=== PATIENT | male | born 1995 | race Caucasian/White ===

== ENCOUNTER 2019-05-30 17:32 | Emergency (ER) | payer SELFPAY ==
[2019-05-30 17:33] VITALS: BP 152/102; PULSE 75; PULSE 79; RESP 18; RESP 28; TEMP 36.2; O2SAT 97; BMI 28.4
[2019-05-30] MEDS: fentaNYL 100 MCG/2 ML Ampul IV (17:40)
[2019-05-30] MEDS: fentaNYL 100 MCG/2 ML Ampul 50 MCG IV ×3 (17:51→18:30)
--- NOTE | 2019-05-30 17:53 | ED.RN ---
PT REPORTED UNABLE TO WIGGLE TOES ON BILAT FEET. PT UNABLE TO PERFORM PEDAL PUSHES. PT ON BACKBOARD W/C-COLLAR.
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
[2019-05-30 17:57] VITALS: BP 129/92; PULSE 71; RESP 18; O2SAT 100
[2019-05-30 18:04] VITALS: BP 149/96; PULSE 80; RESP 18; O2SAT 100
--- NOTE | 2019-05-30 18:08 | NURSING ---
CALLED [facility] 174 20 MIN ETA
--- NOTE | 2019-05-30 18:08 | NURSING ---
1800 [facility] CALLED, SOMETHING WRONG WITH [facility]. THEY ARE SENDING [facility]
--- NOTE | 2019-05-30 18:09 | NURSING ---
1806 ETA IS 23 MIN FOR CLARISSE
[2019-05-30 18:13] VITALS: BP 149/93; PULSE 66; RESP 18; O2SAT 100
--- NOTE | 2019-05-30 18:22 | ED.RN ---
PT MOANING LYING IN BED WITH MOTHER AT BEDSIDE. DR. GRACE INFORMED THAT PT REPORTED PAIN IS GETTING WORSE.
[2019-05-30 18:32] VITALS: BP 148/77; PULSE 83; RESP 24; O2SAT 100
--- NOTE | 2019-05-30 18:40 | ED.RN ---
[facility] ARRIVED AND VERBAL REPORT GIVEN. PT MOANING AND [facility] NURSE MEDICATING PT W/KETAMINE AT THIS TIME.
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
== END 2019-05-30 18:46 | disposition short-term general hospital (02) ==
PROVIDERS: Emergency Provider Emergency Medicine
DX: S00.83XA Contusion of other part of head, initial encounter (principal); S39.92XA Unspecified injury of lower back, initial encounter; V89.2XXA Person injured in unspecified motor-vehicle accident, traffic, initial encounter; Y93.I9 Activity, other involving external motion; Y92.410 Unspecified street and highway as the place of occurrence of the external cause; Y99.8 Other external cause status
CPT/HCPCS: 71045; 96374; 96376; 99285; J7030

== ENCOUNTER 2019-06-06 12:25 | Inpatient (IN) | payer SELFPAY, OTHER ==
[2019-06-06 12:55] VITALS: BP 115/77; PULSE 103; RESP 20; TEMP 36.9; O2SAT 99; BMI 26.9
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
[2019-06-06] MEDS: oxyCODONE 5 MG Tablet PO ×3 (13:46→21:51)
[2019-06-06 14:44] VITALS: O2SAT 97
--- NOTE | 2019-06-06 14:57 | REHABEVAL_ITS ---
Admission Information Status Changes from Prescreening?: No changes Identified Actual Problem List:: Pain, ALteration in Cmfrt, Mobility Impaired, Self Care Deficit Potential Problem List:: DVT, Bleeding, Infection, UTI, Aspiration, Falls, Skin Integrity, Depression Risk of Complications DVT: LMWH, TRIPP Hose, Sequential Compression Device Bleeding: Monitor Lab Values, Nursing to Teach Precautions for anti-coagulation therapy., Wound, if applicable, to be assessed every shift., Stroke patients assessed for lethargy or change in status. Infection: Clinical Staff to Monitor for S/S of infection:, S/S of infection include fever, redness, warmth, etc. Urinary Tract Infection: Monitor for frequency, burning, discomfort, or incontinence., Nursing will obtain urine sample for urinalysis and C&S when ordered. Aspiration: Clinical staff will monitor for coughing, drooling, congestion., Speech will evaluate swallowing and dsyphasia., Nursing will monitor patient swallowing during meals. Falls: Patient will be evaluated for Fall Precautions, Patient will be placed on Fall Precautions as indicated per protocol. Skin Breakdown: Nursing will assess skin daily using assessment tool., Nursing will place on Skin Breakdown Precautions as indicated. Pain: Clinical staff will assess patient's pain level per protocol., Medications will be given, if needed, and the pain level reassessed., Other methods: Massage, distraction, decrease stimulus, etc. used PRN. Plan of Care Patient requires physician specializing in physical medicine and rehab oversight to provide close medical supervision of rehab issues including: Pain Management, Sleep Problems, Bowel and Bladder, Medical and co-morbidity Management, DVT prophylaxis, Rehabilitation Leadership, Coordination of treatment team Patient needs Physical Therapy: For a minimum of 1 hour, At least 5 out of 7 days Patient needs Physical Therapy to improve:: Mobility, Mobility, Mobility, Strengthening, Transfers, Stretching, ROM, Endurance, Stairs, Gait, Balance Patient needs Occupational Therapy: For a minimum of 1 hour, At least 5 out of 7 days Patient needs Occupational Therapy to improve ADL's incl.: Eating, Grooming, Bathing, Dressing, Toileting, Toilet transfers, Community Reintegration, Higher functioning activities, Household tasks, Adaptive Equipment, Splinting, Other activities as determined Patient requires speech therapy: For a minimum of 1 hour, At least 5 out of 7 days Patient requires speech therapy for: Swallowing, Cognition, Language Skills, Compensatory Strategies Patient requires 24/7 Rehabilitation Nursing for: Pain Issues, Identifying and preventing risk factors, Monitoring and reporting current medical conditions, Assisting with ambulation, transfer, and all ADL's, Teaching patients about disease process and medications, Family teaching, Providing safe environment, Bowel and Bladder Issues, Skin integrity, Medication Management Patient needs Special Education Curriculum Specialist/ Case Management for: Discharge Planning, Arranging Home Equipment or Services, Family Interventions Patient needs Dietary and Nutrition Services for: Adequate Nutrition, Nutritional Supplements, Nutritional Education Goals Patient will remain: free from falls, or injury at time of discharge. Patient will perform bed mobility at: MOD I level of assist. Patient will complete transfers from bed to chair at: MOD I level of assist. Patient will ambulate: 100 feet, with MOD I assist, with LRD Patient will complete upper body dressing at: MOD I level of assist. Patient will complete lower body dressing at: MOD I level of assist. Patient will complete toileting at: MOD I level of assist. Patient will perform bathing at: MOD I level of assist. Patient will complete grooming at: MOD I level of assist. Patient will complete home management skills at: MOD I level of assist. Patient will achieve: 12 stairs, at MOD I assist Patient will have pain level of: of 3 or less Patient's skin will: remain intact, free from infection. Patient will receive: adequate nutrition. Discharge Planning Pt Prognosis for Sig. Practical Improv. w/in Reasonable Time: Good Estimated Length of stay (days): 16 Anticipated D/C Destination: [facility] Facility Was Preadmission Assessment Accurate?: Yes
[2019-06-06 15:30] VITALS: BMI 27.0
[2019-06-06] MEDS: Acetaminophen 500 MG Tablet 1000 MG PO ×2 (15:39→21:02)
--- NOTE | 2019-06-06 16:18 | NURSING ---
unable to void, bladder scan for 898. Misti MAGDALENO aware. new order to insert Beard catheter. 18 polish inserted with 800 out put. pt tolerated well. Dr arvizu consulted
[2019-06-06] MEDS: cycloBENZAPRine HCl 10 MG Tablet PO (17:03)
[2019-06-06] MEDS: Gabapentin 300 MG Capsule PO (18:42)
[2019-06-06] MEDS: Tamsulosin HCl 0.4 MG Capsule PO (18:42)
[2019-06-06] MEDS: LORazepam 0.5 MG Tablet PO (21:02)
[2019-06-06] MEDS: Senna/Docusate Sodium 1 Tablet 2 TABLET PO (21:03)
[2019-06-06] MEDS: MELATONIN 3 MG TABLET 6 MG PO (21:03)
[2019-06-06 21:09] VITALS: BP 123/71; PULSE 86; RESP 20; TEMP 36.8; O2SAT 97
[2019-06-07] MEDS: oxyCODONE 5 MG Tablet PO ×5 (02:50→19:47)
[2019-06-07] MEDS: Acetaminophen 500 MG Tablet 1000 MG PO ×3 (05:41→21:09)
[2019-06-07] MEDS: Enoxaparin 40 MG/0.4 ML Syringe SC (05:41)
[2019-06-07 06:16] LABS: Anion Gap 8 (5-15); BUN 18 mg/dL (7-18); BUN/Creat Ratio 28.1 RATIO (10-20); Calcium,Total 9.1 mg/dL (8.5-10.1); Chloride 102 mmol/L (98-107); Creatinine, Serum 0.64 mg/dL (0.70-1.30); EST Glomerular Filtration Rate 162 mL/min (>60); Est Glom Filt Rate - Afr Amer 196 mL/min (>60); Estimated Creatinine Clearance 160.61 ml/min; Glucose 93 mg/dL (74-106); Potassium 4.1 mmol/L (3.5-5.1); Sodium Level 137 mmol/L (136-145)
[2019-06-07 06:28] LABS: Absolute Lymphocyte Count 1.84 X10^3/uL (0.83-4.51); Absolute Neutrophil Count 5.9 X10^3/uL (2.0-7.7); Basophil# 0.03 X10^3/uL; Basophil% 0.3 % (0-1); Eosinophil# 0.32 X10^3/uL; Eosinophils% 3.6 % (0-5); Hemoglobin 10.9 g/dL (13.0-16.5); Lymphocyte # 1.84 X10^3/ul (4.0); Lymphocyte % 20.4 % (19-41); Mean Corp Hgb Conc 34.1 g/dL (32-36); Mean Corpuscular Volume 88.2 fL (80-94); Mean Platelet Vol. 8.4 fl (6.2-12.0); Monocyte# 0.85 X10^3/uL; Monocyte% 9.4 % (0-10); NRBC Flagged by Analyzer 0 % (0-5); Neutrophil # 5.88 X10^3/uL (2.7-7.7); Neutrophil % 65.4 % (47-70); Platelet Count 326 K/mm3 (150-450); RBC Distribution Width CV 13.2 % (11.6-14.6); RBC Distribution Width SD 40.6 fl (35.1-43.9); Red Blood Count 3.63 M/mm3 (4.6-6.2)
[2019-06-07 06:57] VITALS: O2SAT 96
[2019-06-07 07:23] VITALS: BP 129/70; PULSE 76; RESP 14; TEMP 36.7; O2SAT 97
[2019-06-07] MEDS: Lidocaine 5% Patch 1 PATCH TOPICAL (09:11)
[2019-06-07] MEDS: Senna/Docusate Sodium 1 Tablet 2 TABLET PO ×2 (09:12→21:09)
[2019-06-07] MEDS: Gabapentin 300 MG Capsule PO ×3 (09:12→17:19)
[2019-06-07] MEDS: Famotidine 20 MG Tablet PO (09:12)
[2019-06-07] MEDS: fentaNYL 25 MCG Patch TRANSDERM. (10:51)
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
[2019-06-07] MEDS: Tamsulosin HCl 0.4 MG Capsule PO (17:19)
[2019-06-07] MEDS: cycloBENZAPRine HCl 10 MG Tablet PO ×2 (17:21→20:38)
[2019-06-07 20:30] VITALS: BP 128/74; PULSE 91; RESP 16; TEMP 37.3; O2SAT 96
[2019-06-07] MEDS: MELATONIN 3 MG TABLET 6 MG PO (21:09)
[2019-06-07] MEDS: LORazepam 0.5 MG Tablet PO (22:07)
[2019-06-08] MEDS: oxyCODONE 5 MG Tablet PO ×6 (00:43→23:11)
[2019-06-08] MEDS: cycloBENZAPRine HCl 10 MG Tablet PO ×2 (04:05→14:54)
[2019-06-08] MEDS: Enoxaparin 40 MG/0.4 ML Syringe SC (05:00)
[2019-06-08] MEDS: Magnesium Hydroxide 30 ML UDC PO (05:00)
[2019-06-08] MEDS: Acetaminophen 500 MG Tablet 1000 MG PO ×3 (05:00→21:22)
[2019-06-08] MEDS: Gabapentin 300 MG Capsule PO ×3 (08:02→17:38)
[2019-06-08] MEDS: Famotidine 20 MG Tablet PO (08:02)
[2019-06-08] MEDS: Lidocaine 5% Patch 1 PATCH TOPICAL (08:02)
[2019-06-08] MEDS: Senna/Docusate Sodium 1 Tablet 2 TABLET PO ×2 (08:02→21:22)
[2019-06-08 08:27] VITALS: BP 140/76; PULSE 84; RESP 16; TEMP 37; O2SAT 96
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
[2019-06-08 14:05] VITALS: O2SAT 98
[2019-06-08] MEDS: Tamsulosin HCl 0.4 MG Capsule PO (17:38)
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
[2019-06-08] MEDS: fentaNYL 25 MCG Patch TRANSDERM. (21:21)
[2019-06-08] MEDS: MELATONIN 3 MG TABLET 6 MG PO (21:22)
[2019-06-08 22:00] VITALS: BP 126/72; PULSE 82; RESP 16; TEMP 36.9; O2SAT 95
[2019-06-09] MEDS: Baclofen 10 MG Tablet PO ×2 (02:32→13:13)
[2019-06-09] MEDS: Acetaminophen 500 MG Tablet 1000 MG PO ×3 (05:10→22:41)
[2019-06-09] MEDS: oxyCODONE 5 MG Tablet PO (05:10)
[2019-06-09] MEDS: Enoxaparin 40 MG/0.4 ML Syringe SC (05:10)
[2019-06-09 05:57] VITALS: O2SAT 97
[2019-06-09] MEDS: Bisacodyl 10 MG Suppository RECTAL (06:09)
[2019-06-09] MEDS: Ibuprofen 600 MG Tablet PO ×2 (06:09→17:20)
[2019-06-09 08:00] VITALS: BP 134/69; PULSE 88; RESP 16; TEMP 37.2; O2SAT 97
[2019-06-09] MEDS: Gabapentin 300 MG Capsule PO ×3 (08:17→17:20)
[2019-06-09] MEDS: Famotidine 20 MG Tablet PO (08:17)
[2019-06-09] MEDS: Senna/Docusate Sodium 1 Tablet 2 TABLET PO (08:17)
[2019-06-09] MEDS: Lidocaine 5% Patch 3 PATCH TOPICAL (09:22)
[2019-06-09] MEDS: Tamsulosin HCl 0.4 MG Capsule PO (17:21)
--- NOTE | 2019-06-09 17:47 | NURSING ---
Reviewed and agree with [employer]'s Fims and charting
[2019-06-09 19:11] VITALS: BP 132/74; PULSE 98; RESP 18; TEMP 37; O2SAT 98
[2019-06-09 20:29] VITALS: RESP 18; O2SAT 94
[2019-06-09] MEDS: MELATONIN 3 MG TABLET 6 MG PO (22:42)
[2019-06-10] MEDS: oxyCODONE 5 MG Tablet PO ×2 (02:17→20:51)
[2019-06-10] MEDS: Acetaminophen 500 MG Tablet 1000 MG PO ×3 (05:11→20:58)
[2019-06-10] MEDS: Enoxaparin 40 MG/0.4 ML Syringe SC (05:12)
[2019-06-10 07:25] VITALS: BP 124/61; PULSE 83; RESP 16; TEMP 36.4; O2SAT 96
[2019-06-10] MEDS: Ibuprofen 600 MG Tablet PO (08:05)
[2019-06-10] MEDS: Gabapentin 300 MG Capsule PO ×3 (08:06→17:30)
[2019-06-10] MEDS: Senna/Docusate Sodium 1 Tablet 2 TABLET PO ×2 (08:06→20:57)
[2019-06-10] MEDS: Famotidine 20 MG Tablet PO (08:06)
[2019-06-10] MEDS: Lidocaine 5% Patch 3 PATCH TOPICAL (10:16)
--- NOTE | 2019-06-10 11:00 | NURSING ---
sat edge of bed for approx 20 minutes with 2 assist. pain tolerable.
--- NOTE | 2019-06-10 16:15 | NURSING ---
assist x2 to sit edge of bed for approx 25 minutes. tolerated well.
--- NOTE | 2019-06-10 16:17 | NURSING ---
duragesic patch 25mcg and 12mcg maintained to left arm.
--- NOTE | 2019-06-10 17:15 | NURSING ---
Reviewed and agree with [employer]'s FIMS and charting
[2019-06-10] MEDS: Tamsulosin HCl 0.4 MG Capsule PO (17:30)
[2019-06-10 19:18] VITALS: BP 133/58; PULSE 83; RESP 16; TEMP 36.8; O2SAT 95
[2019-06-10] MEDS: LORazepam 0.5 MG Tablet PO (20:52)
[2019-06-10] MEDS: MELATONIN 3 MG TABLET 6 MG PO (20:58)
[2019-06-10 22:00] VITALS: PULSE 83; RESP 16; O2SAT 95
[2019-06-11] MEDS: Acetaminophen 500 MG Tablet 1000 MG PO ×3 (06:00→21:44)
[2019-06-11] MEDS: Enoxaparin 40 MG/0.4 ML Syringe SC (06:00)
[2019-06-11 07:10] VITALS: BP 124/77; PULSE 78; RESP 16; TEMP 36.6; O2SAT 96
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
[2019-06-11] MEDS: Gabapentin 300 MG Capsule PO ×3 (09:06→17:44)
[2019-06-11] MEDS: Ibuprofen 600 MG Tablet PO (09:06)
[2019-06-11] MEDS: Senna/Docusate Sodium 1 Tablet 2 TABLET PO ×2 (09:06→21:44)
[2019-06-11] MEDS: Famotidine 20 MG Tablet PO (09:06)
[2019-06-11] MEDS: oxyCODONE 5 MG Tablet PO (09:10)
[2019-06-11] MEDS: Lidocaine 5% Patch 3 PATCH TOPICAL (10:44)
[2019-06-11] MEDS: Tamsulosin HCl 0.4 MG Capsule PO (17:44)
[2019-06-11 18:48] VITALS: BP 142/67; PULSE 78; RESP 16; TEMP 37; O2SAT 98
[2019-06-11] MEDS: fentaNYL 25 MCG Patch TRANSDERM. (21:41)
[2019-06-11] MEDS: LORazepam 0.5 MG Tablet PO (21:41)
[2019-06-11] MEDS: MELATONIN 3 MG TABLET 6 MG PO (21:42)
[2019-06-11 22:00] VITALS: PULSE 78; RESP 16; O2SAT 98
[2019-06-12] MEDS: Acetaminophen 500 MG Tablet 1000 MG PO ×3 (05:38→21:02)
[2019-06-12] MEDS: Enoxaparin 40 MG/0.4 ML Syringe SC (05:39)
[2019-06-12 07:21] VITALS: BP 117/73; PULSE 89; RESP 16; TEMP 36.8; O2SAT 94
[2019-06-12] MEDS: Ibuprofen 600 MG Tablet PO (07:39)
[2019-06-12] MEDS: Gabapentin 300 MG Capsule PO ×3 (07:39→17:41)
[2019-06-12] MEDS: Famotidine 20 MG Tablet PO (07:39)
[2019-06-12] MEDS: Lidocaine 5% Patch 3 PATCH TOPICAL (07:40)
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
--- NOTE | 2019-06-12 16:00 | NURSING ---
Refused Ibuprofen after therapy session like pain management recommended.
[2019-06-12] MEDS: Tamsulosin HCl 0.4 MG Capsule PO (17:41)
[2019-06-12 19:47] VITALS: BP 122/69; PULSE 81; RESP 16; TEMP 36.9; O2SAT 96
[2019-06-12] MEDS: MELATONIN 3 MG TABLET 6 MG PO (21:03)
[2019-06-12] MEDS: LORazepam 0.5 MG Tablet PO (21:03)
[2019-06-12 22:00] VITALS: PULSE 81; RESP 16; O2SAT 96
[2019-06-13 05:48] LABS: Hematocrit 34.1 % (40-54); Hemoglobin 11.3 g/dL (13.0-16.5); Mean Corp Hgb Conc 33.1 g/dL (32-36); Mean Corpuscular Hgb 29.4 pg (27.0-32.0); Mean Corpuscular Volume 88.8 fL (80-94); Mean Platelet Vol. 7.9 fl (6.2-12.0); Platelet Count 380 K/mm3 (150-450); RBC Distribution Width CV 12.3 % (11.6-14.6); RBC Distribution Width SD 39.2 fl (35.1-43.9); Red Blood Count 3.84 M/mm3 (4.6-6.2); White Blood Count 6.8 K/mm3 (4.4-11.0)
[2019-06-13] MEDS: Enoxaparin 40 MG/0.4 ML Syringe SC (05:57)
[2019-06-13] MEDS: Acetaminophen 500 MG Tablet 1000 MG PO ×3 (05:57→21:59)
[2019-06-13 06:09] LABS: Anion Gap 4 (5-15); BUN 19 mg/dL (7-18); BUN/Creat Ratio 28.5 RATIO (10-20); Calcium,Total 9.4 mg/dL (8.5-10.1); Chloride 101 mmol/L (98-107); Creatinine, Serum 0.67 mg/dL (0.70-1.30); EST Glomerular Filtration Rate 155 mL/min (>60); Est Glom Filt Rate - Afr Amer 188 mL/min (>60); Estimated Creatinine Clearance 153.42 ml/min; Glucose 91 mg/dL (74-106); Potassium 4.4 mmol/L (3.5-5.1); Sodium Level 136 mmol/L (136-145)
[2019-06-13 08:05] VITALS: BP 125/71; PULSE 73; RESP 18; TEMP 36.9; O2SAT 97
[2019-06-13] MEDS: Lidocaine 5% Patch 3 PATCH TOPICAL (08:32)
[2019-06-13] MEDS: Famotidine 20 MG Tablet PO (08:32)
[2019-06-13] MEDS: Ibuprofen 600 MG Tablet PO (08:32)
[2019-06-13] MEDS: Gabapentin 300 MG Capsule PO ×3 (08:32→17:09)
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
--- NOTE | 2019-06-13 15:27 | NURSING ---
pt refusing pain mgmt MD suggestion for ibuprofen following therapy session. Pt did take ibuprofen prior to therapy.
[2019-06-13] MEDS: Tamsulosin HCl 0.4 MG Capsule PO (17:09)
--- NOTE | 2019-06-13 18:32 | NURSING ---
reviewed and agree with [employer]CHNICIAN charting.
[2019-06-13 21:02] VITALS: BP 133/76; PULSE 86; RESP 18; TEMP 36.6; O2SAT 97
[2019-06-13] MEDS: MELATONIN 3 MG TABLET 6 MG PO (21:59)
[2019-06-14] MEDS: Acetaminophen 500 MG Tablet 1000 MG PO ×3 (06:21→20:34)
[2019-06-14] MEDS: Enoxaparin 40 MG/0.4 ML Syringe SC (06:22)
[2019-06-14 07:39] VITALS: BP 121/76; PULSE 73; RESP 18; TEMP 36.6; O2SAT 97
[2019-06-14] MEDS: Ibuprofen 600 MG Tablet PO (08:11)
[2019-06-14] MEDS: Lidocaine 5% Patch 3 PATCH TOPICAL (08:12)
[2019-06-14] MEDS: Famotidine 20 MG Tablet PO (08:12)
[2019-06-14] MEDS: Gabapentin 300 MG Capsule PO ×3 (08:12→17:28)
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
[2019-06-14] MEDS: Tamsulosin HCl 0.4 MG Capsule PO (17:28)
[2019-06-14 18:36] VITALS: BP 120/76; PULSE 96; RESP 16; TEMP 37; O2SAT 97
[2019-06-14] MEDS: Senna/Docusate Sodium 1 Tablet 2 TABLET PO (20:33)
[2019-06-14] MEDS: fentaNYL 25 MCG Patch TRANSDERM. (20:33)
[2019-06-14] MEDS: MELATONIN 3 MG TABLET 6 MG PO (20:34)
[2019-06-15] MEDS: Enoxaparin 40 MG/0.4 ML Syringe SC (05:07)
[2019-06-15] MEDS: Acetaminophen 500 MG Tablet 1000 MG PO ×3 (05:07→21:38)
[2019-06-15 08:36] VITALS: BP 126/71; PULSE 70; RESP 18; TEMP 36.7; O2SAT 95
[2019-06-15] MEDS: Lidocaine 5% Patch 3 PATCH TOPICAL (08:59)
[2019-06-15] MEDS: Gabapentin 300 MG Capsule PO ×3 (08:59→16:46)
[2019-06-15] MEDS: Ibuprofen 600 MG Tablet PO (08:59)
[2019-06-15] MEDS: Famotidine 20 MG Tablet PO (08:59)
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
--- NOTE | 2019-06-15 14:01 | PCM.PN.HOSP ---
Patient Problems: Active and Suspected Problems Unspecified fracture of unspecified thoracic vertebra, sequela (Acute) Unspecified fracture of unspecified thoracic vertebra, initial encounter for closed fracture (Acute) Closed fracture of multiple thoracic vertebrae (Acute) Acute bilateral thoracic back pain (Acute) Low back pain (Acute) Myalgia, unspecified site (Acute) Myalgia, unspecified site (Acute) Other acute postprocedural pain (Acute) Traumatic injury of vertebral region of back (Acute) Subjective: Patient standing is having some increased movement in his lower extremities but still not able to wiggle his toes though he feels his muscles moving cannot be seen at this time. No constipation. Pain is well controlled. Vitals/I&O's: Vital Signs Temp Pulse Resp BP Pulse Ox 36.7 C 70 18 126/71 H 95 06/15/19 08:36 06/15/19 08:36 06/15/19 08:36 06/15/19 08:36 06/15/19 08:36 Oxygen Delivery Method Room Air Weight: 72.4 kg Body Mass Index (BMI) 26.9 Intake and Output for Last 24 Hours 06/13/19 06/14/19 06/15/19 23:59 23:59 23:59 Intake Total 4 / 4 460 / 460 Output Total 1150 / 1150 3075 / 3075 Balance -1146 / -1146 -2615 / -2615 General: Alert, No apparent distress, - - In wheelchair. Back brace in place HEENT: Atraumatic, Normocephalic Oral: Moist Mucosa, No Gingival or Mucosal Lesions/ Ulcerations Neck: No Nodes, Thyroid Normal Size and Texture Lungs: Clear to auscultation, Normal air movement, No rhonchi, No wheeze, No rales Cardiovascular: Regular rate, Regular Rhythm, Normal S1, Normal S2, No murmurs Abdomen: Bowel Sounds Present, Soft, Non Tender, Non-Distended, No Hepato-splenomegaly Extremities: No edema, No Calf Tenderness Skin: No rashes, No breakdown Neurological: - - Unable to wiggle his toes bilaterally Psych/Mental Status: Normal Affect, Appropriate Current Medications Acetaminophen (Tylenol) 1,000 mg PO TID JERAD Last Admin: 06/15/19 13:08 Dose: 1,000 mg Documented by: Baclofen (Lioresal) 10 mg PO Q6H PRN PRN Reason: MUSCLE SPASM Last Admin: 06/09/19 13:13 Dose: 10 mg Documented by: Bisacodyl (Dulcolax) 10 mg RECTAL .PRN X 1 PRN PRN Reason: Constipation Last Admin: 06/09/19 06:09 Dose: 10 mg Documented by: Enoxaparin Sodium (Lovenox) 40 mg SC DAILY@0600 [facility] Last Admin: 06/15/19 05:07 Dose: 40 mg Documented by: Famotidine (Pepcid) 20 mg PO DAILY [facility] Last Admin: 06/15/19 08:59 Dose: 20 mg Documented by: Fentanyl (Duragesic Patch) 25 mcg TRANSDERM. Q3D [facility] Last Admin: 06/14/19 20:33 Dose: 25 mcg Documented by: Fentanyl (Duragesic Patch) 12 mcg TRANSDERM. Q72H [facility] Last Admin: 06/14/19 20:33 Dose: 12 mcg Documented by: Gabapentin (Neurontin) 300 mg PO TIDCM [facility] Last Admin: 06/15/19 13:08 Dose: 300 mg Documented by: Ibuprofen (Motrin) 600 mg PO TID PRN PRN Reason: PAIN Last Admin: 06/15/19 08:59 Dose: 600 mg Documented by: Lidocaine (Lidoderm Patch) 3 patch TOPICAL DAILY [facility]; Protocol Last Admin: 06/15/19 08:59 Dose: 3 patch Documented by: Lorazepam (Ativan) 0.5 mg PO QHS PRN PRN PRN Reason: Insomnia Last Admin: 06/12/19 21:03 Dose: 0.5 mg Documented by: Magnesium Hydroxide (Milk Of Magnesia) 30 ml PO .PRN X 1 PRN PRN Reason: Constipation Last Admin: 06/08/19 05:00 Dose: 30 ml Documented by: Melatonin (Melatonin) 6 mg PO QHS [facility] Last Admin: 06/14/19 20:34 Dose: 6 mg Documented by: Oxycodone HCl (Oxyir) 5 - 10 mg PO Q4H PRN PRN Last Admin: 06/11/19 09:10 Dose: 10 mg Documented by: Senna/Docusate Sodium (Senokot-S, Connie-Colace) 2 tablet PO BID [facility] Last Admin: 06/15/19 10:43 Dose: Not Given Documented by: Tamsulosin HCl (Flomax) 0.4 mg PO DAILY@1730 [facility] Last Admin: 06/14/19 17:28 Dose: 0.4 mg Documented by: Medical Necessity - Tobacco Use Smoking Status: Light Smoker (<10/day) Tobacco Use: Cigarettes, Chew Assessment/Plan All Active Problems Unspecified fracture of unspecified thoracic vertebra, sequela (Acute) Unspecified fracture of unspecified thoracic vertebra, initial encounter for closed fracture (Acute) Closed fracture of multiple thoracic vertebrae (Acute) Acute bilateral thoracic back pain (Acute) Low back pain (Acute) Myalgia, unspecified site (Acute) Myalgia, unspecified site (Acute) Other acute postprocedural pain (Acute) Traumatic injury of vertebral region of back (Acute) 1. L1 lumbar fracture Status post laminectomy on May 31 Continue therapy services as prescribed by rehab. Follow-up with Dr. Hunt on June 21 Pain management following 2. Paraplegia Secondary to #1 Associated urinary retention with subsequent Beard catheter placed Seen by urology who did recommend intermittent self catheterizations when the patient is ready. 3. VTE prophylaxis: Moderate risk given his paraplegia. Continue with enoxaparin. Code Visit Inpatient E&M: 20074 Subs Hosp L2
[2019-06-15] MEDS: Tamsulosin HCl 0.4 MG Capsule PO (16:47)
[2019-06-15] MEDS: MELATONIN 3 MG TABLET 6 MG PO (21:38)
[2019-06-15] MEDS: Senna/Docusate Sodium 1 Tablet 2 TABLET PO (21:38)
[2019-06-15 22:00] VITALS: BP 126/69; PULSE 75; RESP 18; TEMP 36.8; O2SAT 96
--- NOTE | 2019-06-16 03:03 | NURSING ---
Reviewed and agree with LPNs fims and handoff
[2019-06-16] MEDS: Acetaminophen 500 MG Tablet 1000 MG PO ×3 (05:49→22:00)
[2019-06-16] MEDS: Enoxaparin 40 MG/0.4 ML Syringe SC (05:50)
[2019-06-16] MEDS: Lidocaine 5% Patch 3 PATCH TOPICAL (07:45)
[2019-06-16] MEDS: Gabapentin 300 MG Capsule PO ×3 (07:45→16:43)
[2019-06-16] MEDS: Famotidine 20 MG Tablet PO (07:46)
[2019-06-16] MEDS: Senna/Docusate Sodium 1 Tablet 2 TABLET PO ×2 (07:46→22:01)
[2019-06-16] MEDS: Ibuprofen 600 MG Tablet PO (07:49)
[2019-06-16 08:35] VITALS: BP 121/73; PULSE 61; RESP 16; TEMP 36.4; O2SAT 99
[2019-06-16] MEDS: Tamsulosin HCl 0.4 MG Capsule PO (16:43)
[2019-06-16 20:16] VITALS: BP 133/68; PULSE 81; RESP 16; TEMP 37
[2019-06-16] MEDS: MELATONIN 3 MG TABLET 6 MG PO (22:01)
--- NOTE | 2019-06-17 05:30 | NURSING ---
PT OFFERED STRONGER PAIN MEDICATION THIS AM FOR PAIN PT RATED 50 ON A 1-10 SCALE. PT IS LYING IN BED WITH EYES CLOSED AND COVERS PULLED UP OVER FACE. PT'S FRIEND AT BEDSIDE, MASSAGING PT'S FEET. PT DECLINES STRONGER PAIN MED AT THIS TIME.
[2019-06-17] MEDS: Enoxaparin 40 MG/0.4 ML Syringe SC (05:35)
[2019-06-17] MEDS: Acetaminophen 500 MG Tablet 1000 MG PO ×3 (05:35→20:56)
[2019-06-17] MEDS: Gabapentin 300 MG Capsule PO ×3 (08:25→17:01)
[2019-06-17] MEDS: Famotidine 20 MG Tablet PO (08:25)
[2019-06-17] MEDS: Ibuprofen 600 MG Tablet PO (08:25)
[2019-06-17] MEDS: Lidocaine 5% Patch 3 PATCH TOPICAL (08:26)
[2019-06-17 09:00] VITALS: BP 118/72; PULSE 65; RESP 16; TEMP 36.9; O2SAT 95
[2019-06-17] MEDS: Tamsulosin HCl 0.4 MG Capsule PO (17:01)
[2019-06-17 20:38] VITALS: BP 135/74; PULSE 82; RESP 16; TEMP 37.4; O2SAT 97
[2019-06-17] MEDS: fentaNYL 25 MCG Patch TRANSDERM. (20:42)
[2019-06-17] MEDS: MELATONIN 3 MG TABLET 6 MG PO (20:56)
[2019-06-17] MEDS: Senna/Docusate Sodium 1 Tablet 2 TABLET PO (20:56)
[2019-06-18] MEDS: Acetaminophen 500 MG Tablet 1000 MG PO (07:00)
[2019-06-18] MEDS: Enoxaparin 40 MG/0.4 ML Syringe SC (07:00)
[2019-06-18 07:04] VITALS: BP 115/63; PULSE 73; RESP 16; TEMP 36.7; O2SAT 96
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
[2019-06-18] MEDS: Lidocaine 5% Patch 3 PATCH TOPICAL (09:57)
[2019-06-18] MEDS: Gabapentin 300 MG Capsule PO ×3 (09:58→17:21)
[2019-06-18] MEDS: Famotidine 20 MG Tablet PO (09:58)
[2019-06-18] MEDS: Senna/Docusate Sodium 1 Tablet 2 TABLET PO ×2 (09:58→22:08)
--- NOTE | 2019-06-18 10:34 | NURSING ---
Addendum entered by Bhargavi Spence 06/18/19 10:38: also requested that Dr Jose let us know if he would like to make any other medication changes. Original Note: Dr Jose made aware that Duragesic patch 7mcg was dc'd d/t pt c/o drowsiness and requesting changes to his pain medication.
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
--- NOTE | 2019-06-18 14:56 | CASEMGMT ---
Social Work IDT met with patient and family for Team Meeting. Discussed making progress in therapy. Pt is min to mod for transfers, working on slide board transfers with one person, trunk strength is improving and can stand for longer periods of time, ankle strength is still poor and cannot walk yet. Pt is w/c level at this time and max assist with lower body care. Pt inquiring about discharge plans and finances. Pt can discharge whenever he requests. Contacted [facility] Liaison for further financial assistance. She has met with pt and parents three times to educate and provide resources. Reiterated assistance with pt and can help with hospital bills and DME when ready to DC. Pt agreed to ReTeam next week to discuss progress. Will continue to follow. SHAYY ElmoreW
[2019-06-18] MEDS: Tamsulosin HCl 0.4 MG Capsule PO (17:22)
[2019-06-18 19:17] VITALS: BP 140/79; PULSE 85; RESP 16; TEMP 37.1; O2SAT 97
[2019-06-18 21:30] VITALS: PULSE 85; RESP 16; O2SAT 97
[2019-06-18] MEDS: MELATONIN 3 MG TABLET 6 MG PO (22:07)
[2019-06-19] MEDS: Enoxaparin 40 MG/0.4 ML Syringe SC (06:04)
--- NOTE | 2019-06-19 06:49 | NURSING ---
Reviewed and agree with LPNs fims and handoff
[2019-06-19 08:41] VITALS: BP 112/70; PULSE 72; RESP 16; TEMP 36.9; O2SAT 94
[2019-06-19] MEDS: Famotidine 20 MG Tablet PO (08:47)
[2019-06-19] MEDS: Gabapentin 300 MG Capsule PO ×3 (08:47→17:43)
[2019-06-19] MEDS: Senna/Docusate Sodium 1 Tablet 2 TABLET PO ×2 (08:48→21:44)
[2019-06-19] MEDS: Lidocaine 5% Patch 3 PATCH TOPICAL (08:48)
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
[2019-06-19] MEDS: Ibuprofen 600 MG Tablet PO ×2 (13:56→21:44)
[2019-06-19] MEDS: Tamsulosin HCl 0.4 MG Capsule PO (17:43)
[2019-06-19 21:00] VITALS: BP 120/72; PULSE 73; RESP 16; TEMP 36.9; O2SAT 95
[2019-06-19] MEDS: MELATONIN 3 MG TABLET 6 MG PO (21:44)
--- NOTE | 2019-06-20 03:51 | NURSING ---
Reviewed and agree with LPNs fims and handoff
[2019-06-20] MEDS: Acetaminophen 500 MG Tablet 1000 MG PO ×3 (06:01→22:49)
[2019-06-20] MEDS: Enoxaparin 40 MG/0.4 ML Syringe SC (06:02)
[2019-06-20] MEDS: Lidocaine Jelly 2% 20 ML Syringe (URO-JET) 20 APPLIC TOPICAL (06:20)
[2019-06-20 08:42] VITALS: BP 111/60; PULSE 66; RESP 16; TEMP 36.7; O2SAT 96
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
[2019-06-20] MEDS: Ibuprofen 600 MG Tablet PO (10:19)
[2019-06-20] MEDS: Lidocaine 5% Patch 3 PATCH TOPICAL (10:19)
[2019-06-20] MEDS: Gabapentin 300 MG Capsule PO ×3 (10:20→17:21)
[2019-06-20] MEDS: Senna/Docusate Sodium 1 Tablet 2 TABLET PO ×2 (10:20→22:48)
[2019-06-20] MEDS: Famotidine 20 MG Tablet PO (10:20)
[2019-06-20] MEDS: oxyCODONE 5 MG Tablet PO (13:36)
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
[2019-06-20] MEDS: Tamsulosin HCl 0.4 MG Capsule PO (17:21)
[2019-06-20 22:00] VITALS: BP 117/60; PULSE 63; RESP 17; TEMP 36.6; O2SAT 96
[2019-06-20] MEDS: fentaNYL 25 MCG Patch TRANSDERM. (22:47)
[2019-06-20] MEDS: MELATONIN 3 MG TABLET 6 MG PO (22:48)
[2019-06-20] MEDS: LORazepam 0.5 MG Tablet PO (22:51)
--- NOTE | 2019-06-20 23:25 | NURSING ---
upon taking off old 25 mcg duragesic patch and attempting to waste, this nurse and RN Fariha noticed that there was no duragesic from 06/17 noted in the accudose. this nurse called John Bauman from pharmacy, and was able to see that there was a 25 mcg patch removed from accudose and another patch wasted soon after. was unable to find a solution for wasting patch in the accudose. this nurse and RN Fariha wasted patch together in Rx destroyer. from pharmacy aware.
--- NOTE | 2019-06-20 23:29 | NURSING ---
This RN attempted to witness a waste of a 25mcg Duragesic. When VICTIMS ADVOCATE CLERK/SPECIALIST looked for appropriate Duragesic to waste, this med was not found in Accudose. The VICTIMS ADVOCATE CLERK/SPECIALIST called , from Pharmacy. recommended writing a Nursing Note about the matter and disposing of the patch in the Destroyer as he could not explain why the dose was not available to waste in the Accudose.
--- NOTE | 2019-06-20 23:40 | NURSING ---
Pt was inappropriate with staff this hs while assessment was being conducted. Staff informed pt that comments made towards staff were not appropriate and that respect should be shown towards staff. Pt remarked that he didn't have to. Staff are caring for this pt in tandem to avoid the RISK MANAGEMENT CONSULTANT becoming a target of inappropriate comments by the pt. Pt asked if I had to remove the Lidocaine patches from his back at midnight. This nurse told him I did have to remove the patches & the removal time is scheduled at this time. The Pt stated that I was a worthless nurse! twice.
--- NOTE | 2019-06-21 05:07 | NURSING ---
Reviewed and agree with trim and burr operator documentation and fims charting
[2019-06-21] MEDS: Acetaminophen 500 MG Tablet 1000 MG PO ×3 (06:27→21:36)
[2019-06-21] MEDS: Enoxaparin 40 MG/0.4 ML Syringe SC (06:28)
[2019-06-21] MEDS: Gabapentin 300 MG Capsule PO ×3 (07:48→16:25)
[2019-06-21] MEDS: Famotidine 20 MG Tablet PO (07:48)
[2019-06-21] MEDS: Senna/Docusate Sodium 1 Tablet 2 TABLET PO ×2 (07:48→21:37)
[2019-06-21] MEDS: Ibuprofen 600 MG Tablet PO (07:51)
[2019-06-21 08:12] VITALS: BP 112/61; PULSE 61; RESP 18; TEMP 36.8; O2SAT 95
[2019-06-21] MEDS: Lidocaine 5% Patch 3 PATCH TOPICAL (08:53)
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
[2019-06-21] MEDS: Tamsulosin HCl 0.4 MG Capsule PO (16:25)
[2019-06-21 19:57] VITALS: BP 116/59; PULSE 65; RESP 16; TEMP 36.8; O2SAT 97
[2019-06-21] MEDS: Baclofen 10 MG Tablet PO (20:06)
[2019-06-21] MEDS: Lidocaine Jelly 2% 20 ML Syringe (URO-JET) 20 APPLIC TOPICAL (21:36)
[2019-06-21] MEDS: MELATONIN 3 MG TABLET 6 MG PO (21:37)
[2019-06-22] MEDS: Acetaminophen 500 MG Tablet 1000 MG PO ×3 (07:01→21:40)
[2019-06-22] MEDS: Enoxaparin 40 MG/0.4 ML Syringe SC (07:02)
[2019-06-22] MEDS: Lidocaine 5% Patch 3 PATCH TOPICAL (09:05)
[2019-06-22] MEDS: Senna/Docusate Sodium 1 Tablet 2 TABLET PO ×2 (09:06→21:41)
[2019-06-22] MEDS: Gabapentin 300 MG Capsule PO ×3 (09:06→17:46)
[2019-06-22] MEDS: Ibuprofen 600 MG Tablet PO (09:06)
[2019-06-22] MEDS: Famotidine 20 MG Tablet PO (09:06)
[2019-06-22 09:34] VITALS: BP 110/61; PULSE 70; RESP 16; TEMP 36.6; O2SAT 97
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
[2019-06-22] MEDS: Tamsulosin HCl 0.4 MG Capsule PO (17:46)
[2019-06-22 19:28] VITALS: BP 115/65; PULSE 67; RESP 16; TEMP 36.8; O2SAT 97
[2019-06-22] MEDS: LORazepam 0.5 MG Tablet PO (21:40)
[2019-06-22] MEDS: MELATONIN 3 MG TABLET 6 MG PO (21:41)
[2019-06-22 22:00] VITALS: PULSE 67; RESP 16; O2SAT 97
[2019-06-23] MEDS: Acetaminophen 500 MG Tablet 1000 MG PO ×3 (06:44→21:03)
[2019-06-23] MEDS: Enoxaparin 40 MG/0.4 ML Syringe SC (06:44)
[2019-06-23 08:00] VITALS: BP 120/60; PULSE 65; RESP 16; TEMP 36.5; O2SAT 96
[2019-06-23] MEDS: Famotidine 20 MG Tablet PO (09:32)
[2019-06-23] MEDS: Gabapentin 300 MG Capsule PO ×3 (09:32→17:36)
[2019-06-23] MEDS: Lidocaine 5% Patch 3 PATCH TOPICAL (09:32)
[2019-06-23] MEDS: Senna/Docusate Sodium 1 Tablet 2 TABLET PO ×2 (09:34→21:03)
[2019-06-23] MEDS: Ibuprofen 600 MG Tablet PO (09:34)
[2019-06-23] MEDS: Tamsulosin HCl 0.4 MG Capsule PO (17:36)
--- NOTE | 2019-06-23 19:14 | NURSING ---
Refused toileting task to be assisted to BSC today.
[2019-06-23 19:35] VITALS: BP 124/80; PULSE 80; RESP 16; TEMP 36.7; O2SAT 97
[2019-06-23] MEDS: MELATONIN 3 MG TABLET 6 MG PO (21:02)
[2019-06-23] MEDS: fentaNYL 25 MCG Patch TRANSDERM. (21:02)
[2019-06-23] MEDS: LORazepam 0.5 MG Tablet PO (21:04)
[2019-06-23 22:00] VITALS: PULSE 80; RESP 16; O2SAT 97
--- NOTE | 2019-06-23 23:02 | PCA ---
Pt. offered shower on 06/23/19 at 2100. Pt. refused shower saying it would be too painful. Recommended to pt. he could shower with dayshift on 06/24/19 if pt. able to tolerate ambulating with staff. pt. agreed with suggestion.
--- NOTE | 2019-06-23 23:09 | NURSING ---
At 21:00, [employer] & RN approached pt regarding showering needs. Pt immediately declined the offer to shower. Pt stated that he feared it would be too painful to sit on the hard bench to shower. [employer] suggested that he reconsider showering Tuesday for dayshift since dayshift staff offered to ambulate pt for exercise as there is no official therapy sessions on Tuesday. Pt agreed to at least reconsider but stated he has sat at edge of bed but able to recline upon discomfort.
[2019-06-24] MEDS: Acetaminophen 500 MG Tablet 1000 MG PO ×3 (06:16→21:50)
[2019-06-24] MEDS: Enoxaparin 40 MG/0.4 ML Syringe SC (06:16)
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
[2019-06-24] MEDS: Gabapentin 300 MG Capsule PO ×3 (08:27→18:20)
[2019-06-24] MEDS: Famotidine 20 MG Tablet PO (08:27)
[2019-06-24] MEDS: Ibuprofen 600 MG Tablet PO (08:27)
[2019-06-24] MEDS: Senna/Docusate Sodium 1 Tablet 2 TABLET PO ×2 (08:27→21:51)
[2019-06-24] MEDS: Lidocaine 5% Patch 3 PATCH TOPICAL (08:28)
[2019-06-24 09:21] VITALS: BP 116/71; PULSE 75; RESP 18; TEMP 36.7; O2SAT 94
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
--- NOTE | 2019-06-24 14:48 | NURSING ---
Refused AM care and to get OOB so far today. Staff also offered toileting and patient refused.
[2019-06-24] MEDS: Tamsulosin HCl 0.4 MG Capsule PO (18:20)
[2019-06-24 19:12] VITALS: BP 124/75; PULSE 90; RESP 16; TEMP 36.6; O2SAT 97
[2019-06-24 21:35] VITALS: PULSE 90; RESP 16
[2019-06-24] MEDS: MELATONIN 3 MG TABLET 6 MG PO (21:51)
--- NOTE | 2019-06-25 01:37 | NURSING ---
Reviewed and agree with [employer] documentation and FIMs charting.
--- NOTE | 2019-06-25 01:42 | NURSING ---
2130 staff to complete clinical findings on pt, pt was laying in the bed with eyes closed and did not respond to name when first called, pt did stir when name was called the 2nd time. Pt stated that he needed to straight cath himself. brother gathered supplies for pt with pt completing the task with difficulty. staff asked pt if he wanted to sit on the bsc and pt responded I don't think tonight, I'll do it in the morning . pt was cooperative staff with completing assessment and denied any further needs
[2019-06-25] MEDS: Acetaminophen 500 MG Tablet 1000 MG PO ×3 (06:50→20:27)
[2019-06-25] MEDS: Enoxaparin 40 MG/0.4 ML Syringe SC (06:52)
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
[2019-06-25 07:11] VITALS: BP 125/69; PULSE 75; RESP 17; TEMP 36.6; O2SAT 96
[2019-06-25] MEDS: Ibuprofen 600 MG Tablet PO (07:43)
[2019-06-25] MEDS: Senna/Docusate Sodium 1 Tablet 2 TABLET PO ×2 (07:44→20:26)
[2019-06-25] MEDS: Gabapentin 300 MG Capsule PO ×3 (07:44→16:53)
[2019-06-25] MEDS: Famotidine 20 MG Tablet PO (07:45)
[2019-06-25] MEDS: Lidocaine 5% Patch 3 PATCH TOPICAL (07:57)
[2019-06-25 09:04] VITALS: BP 125/69; PULSE 84; RESP 16; TEMP 36.8; O2SAT 97
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
--- NOTE | 2019-06-25 10:46 | CASEMGMT ---
Social Work IDT met with patient and family for Team Meeting. Discussed patient making good progress in therapy. Family completed training with therapy. Working on scoot and pivot transfers and slideboard transfers. Pt gaining better trunk and postural strength and control. Pt requesting to DC home 06/30. Therapy will determine pts DC needs. Will continue to follow. Octavia Cadena, [facility]
[2019-06-25] MEDS: Tamsulosin HCl 0.4 MG Capsule PO (16:53)
[2019-06-25 19:48] VITALS: BP 122/68; PULSE 82; RESP 16; TEMP 37.1; O2SAT 98
[2019-06-25 20:20] VITALS: PULSE 82; O2SAT 98
[2019-06-25] MEDS: MELATONIN 3 MG TABLET 6 MG PO (20:27)
[2019-06-26] MEDS: Ibuprofen 600 MG Tablet PO ×2 (04:10→08:23)
[2019-06-26] MEDS: Acetaminophen 500 MG Tablet 1000 MG PO ×3 (06:07→20:33)
[2019-06-26] MEDS: Enoxaparin 40 MG/0.4 ML Syringe SC (06:09)
[2019-06-26 07:02] VITALS: BP 112/62; PULSE 73; RESP 17; TEMP 36.7; O2SAT 95
[2019-06-26] MEDS: Senna/Docusate Sodium 1 Tablet 2 TABLET PO ×2 (08:22→20:34)
[2019-06-26] MEDS: Gabapentin 300 MG Capsule PO ×3 (08:22→17:00)
[2019-06-26] MEDS: Lidocaine 5% Patch 3 PATCH TOPICAL (08:22)
[2019-06-26] MEDS: Famotidine 20 MG Tablet PO (08:22)
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
[2019-06-26 15:47] LABS: Mucous, Urine 0 SEEN /hpf (<or=2+); Squamous Epithelial Cells - UA 0 SEEN /hpf (0-5)
[2019-06-26 15:55] LABS: Color, Urine Yellow (Yellow); Glucose, Dipstick Normal (Normal); Ketone-Dipstick Negative (Negative); Leukocyte Esterase-Dipstick 500 /ul (Negative); Nitrite-Dipstick Positive (Negative); Occult Blood-Urine 250 /ul (Negative); Protein-Dipstick 30 mg/dl (Negative); Urine Bilirubin Dipstick Negative (Negative); Urine Clarity Cloudy (Clear); Urine Urobilinogen Normal (Normal)
[2019-06-26 16:14] LABS: Red Blood Cells-Urine 10-25 SEEN /hpf (0-5)
[2019-06-26 16:15] LABS: Bacteria 1+ /hpf (None Seen); White Blood Cells >100 SEEN /hpf (0-5)
[2019-06-26] MEDS: Tamsulosin HCl 0.4 MG Capsule PO (17:00)
--- NOTE | 2019-06-26 17:36 | NURSING ---
reviewed and agree with [employer] FIM's and charting
[2019-06-26] MEDS: Cefdinir 300 MG Capsule PO (19:41)
[2019-06-26] MEDS: Baclofen 10 MG Tablet PO (20:33)
[2019-06-26] MEDS: MELATONIN 3 MG TABLET 6 MG PO (20:34)
[2019-06-26 21:24] VITALS: BP 137/77; PULSE 80; RESP 16; TEMP 36.8; O2SAT 97
[2019-06-27] MEDS: Baclofen 10 MG Tablet PO (04:26)
[2019-06-27] MEDS: Povidone-Iodine Swabstick 3 PACKET TOPICAL (04:31)
[2019-06-27] MEDS: Lidocaine Jelly 2% 20 ML Syringe (URO-JET) 20 APPLIC TOPICAL ×2 (04:33→11:41)
[2019-06-27] MEDS: oxyCODONE 5 MG Tablet PO ×2 (04:59→09:14)
[2019-06-27] MEDS: Enoxaparin 40 MG/0.4 ML Syringe SC (07:02)
[2019-06-27] MEDS: Acetaminophen 500 MG Tablet 1000 MG PO ×3 (07:02→22:47)
[2019-06-27] MEDS: Gabapentin 300 MG Capsule PO ×3 (07:02→17:35)
[2019-06-27 08:21] VITALS: BP 136/70; PULSE 68; RESP 16; TEMP 36.6; O2SAT 97
[2019-06-27] MEDS: Senna/Docusate Sodium 1 Tablet 2 TABLET PO ×2 (09:14→22:48)
[2019-06-27] MEDS: Cefdinir 300 MG Capsule PO ×2 (09:14→22:48)
[2019-06-27] MEDS: Famotidine 20 MG Tablet PO (09:14)
[2019-06-27] MEDS: Lidocaine 5% Patch 3 PATCH TOPICAL (09:15)
--- NOTE | 2019-06-27 09:43 | NURSING ---
Spoke with [facility] nurse for Dr Donald to update doctor regarding UTI, bladder spasm , leakage and treatments that are in place.
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
[2019-06-27] MEDS: Tamsulosin HCl 0.4 MG Capsule PO (17:35)
--- NOTE | 2019-06-27 17:40 | NURSING ---
pt refused to get up to bsc this shift
--- NOTE | 2019-06-27 20:00 | NURSING ---
PT REQUESTS TO USE BSC. ASSISTED TO BSC WHERE PT PASSES LG AMT FLATUS AND VERY SMALL AMT OF SOFT BROWN STOOL MIXED WITH APPROX 100 ML URINE. PT RETURNS SELF TO BED. PT INSTRUCTED THAT HE HAS NOT HAD A BM SINCE 06/25/19 AND THAT HE WILL BEGIN TO FEEL UNCOMFORTABLE AND HAVE HARDER TIME PASSING STOOL IF HE DOES NOT HAVE A BM SOON. PT REFUSING MILK OF MAGNESIA AT THIS TIME AND IS AGREEABLE TO TAKING IT IN THE AM HE DOES NOT WANT TO HAVE TO WAKE DURING NIGHT. PT ALSO INSTRUCTED WHY IT IS IMPORTANT FOR HIM TO SIT ON BSC TWICE DAILY TO ASSIST HIM IN HAVING A BM.
[2019-06-27 22:00] VITALS: BP 130/70; PULSE 70; RESP 16; TEMP 36.6; O2SAT 97
--- NOTE | 2019-06-27 22:30 | NURSING ---
PT RESTING WITH EYES CLOSED AND FAMILY MEMBER IN ROOM. PT ASKED IF HE HAD URGE TO URINATE HE HAS NOT CATHED SELF YET THIS EVENING. PT HAS PASSED APPROX 50 ML OF URINE INTO URINAL WHICH HAD BEEN HOLDING IN PLACE. PT DOES NOT FEEL URGE TO PEE AND BLADDER SCANNED FOR 376 ML URINE. PT AGREES TO CATH SELF. PT PROVIDED WITH KIT.
[2019-06-27] MEDS: MELATONIN 3 MG TABLET 6 MG PO (22:49)
[2019-06-28] MEDS: Acetaminophen 500 MG Tablet 1000 MG PO ×3 (06:39→21:42)
[2019-06-28] MEDS: Magnesium Hydroxide 30 ML UDC PO (06:40)
[2019-06-28] MEDS: Enoxaparin 40 MG/0.4 ML Syringe SC (06:40)
[2019-06-28 07:00] VITALS: BP 120/71; PULSE 69; RESP 12; TEMP 36.8; O2SAT 93
[2019-06-28] MEDS: Ibuprofen 600 MG Tablet PO (07:59)
[2019-06-28] MEDS: Famotidine 20 MG Tablet PO (07:59)
[2019-06-28] MEDS: Gabapentin 300 MG Capsule PO ×3 (07:59→17:02)
[2019-06-28] MEDS: Senna/Docusate Sodium 1 Tablet 2 TABLET PO ×2 (08:00→21:41)
[2019-06-28] MEDS: Cefdinir 300 MG Capsule PO ×2 (09:17→21:38)
[2019-06-28] MEDS: Lidocaine 5% Patch 1 PATCH TOPICAL (09:17)
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
--- NOTE | 2019-06-28 15:03 | CASEMGMT ---
Addendum entered by Octavia Cadena 06/29/19 11:47: Pt and family would like a referral made to [facility] for outpatient therapy. Scheduled appt for 07/06 at 7:30 am. Original Note: Social Work Pt and family working with [facility] Liaison to secure all DME needs. Provided pt with outpatient PT/OT script to decide if he would like to f/u in the community as pt would be private pay. Family is assisting with therapies at home. Pt discharging home 06/30. SHAYY Elmore
[2019-06-28] MEDS: Tamsulosin HCl 0.4 MG Capsule PO (17:02)
[2019-06-28 19:27] VITALS: BP 132/74; PULSE 72; RESP 16; TEMP 36.7; O2SAT 95
[2019-06-28] MEDS: MELATONIN 3 MG TABLET 6 MG PO (21:38)
[2019-06-28] MEDS: Lidocaine Jelly 2% 20 ML Syringe (URO-JET) 20 APPLIC TOPICAL (21:49)
[2019-06-28 22:00] VITALS: PULSE 72; RESP 17; O2SAT 95
[2019-06-29] MEDS: LORazepam 0.5 MG Tablet PO ×2 (00:18→23:05)
[2019-06-29] MEDS: Acetaminophen 500 MG Tablet 1000 MG PO ×3 (06:43→21:32)
[2019-06-29] MEDS: Enoxaparin 40 MG/0.4 ML Syringe SC (06:43)
[2019-06-29 07:05] VITALS: BP 116/63; PULSE 68; RESP 16; TEMP 36.8; O2SAT 96
[2019-06-29] MEDS: Lidocaine 5% Patch 1 PATCH TOPICAL (08:30)
[2019-06-29] MEDS: Famotidine 20 MG Tablet PO (08:31)
[2019-06-29] MEDS: Cefdinir 300 MG Capsule PO ×2 (08:31→21:33)
[2019-06-29] MEDS: Senna/Docusate Sodium 1 Tablet 2 TABLET PO ×2 (08:31→21:33)
[2019-06-29] MEDS: Gabapentin 300 MG Capsule PO ×3 (08:31→18:07)
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
[2019-06-29] MEDS: Tamsulosin HCl 0.4 MG Capsule PO (18:07)
[2019-06-29] MEDS: Lidocaine Jelly 2% 20 ML Syringe (URO-JET) 20 APPLIC TOPICAL (20:08)
[2019-06-29 21:22] VITALS: BP 117/63; PULSE 77; RESP 16; TEMP 36.6; O2SAT 97
[2019-06-29] MEDS: MELATONIN 3 MG TABLET 6 MG PO (21:33)
--- NOTE | 2019-06-29 22:00 | NURSING ---
Pt states I already cathed myself. Instructed pt to have RN in room for supervison next time he self caths. Acknowledges. Pt also states has been up to [facility] already and had a bm around 6p). Pt states will try again in am after b-fast
[2019-06-29] MEDS: Baclofen 10 MG Tablet PO (23:07)
[2019-06-30] MEDS: Enoxaparin 40 MG/0.4 ML Syringe SC (06:19)
[2019-06-30] MEDS: Acetaminophen 500 MG Tablet 1000 MG PO (06:39)
[2019-06-30 08:15] VITALS: BP 111/78; PULSE 69; RESP 16; TEMP 36.7; O2SAT 97
[2019-06-30] MEDS: Senna/Docusate Sodium 1 Tablet 2 TABLET PO (08:47)
[2019-06-30] MEDS: Famotidine 20 MG Tablet PO (08:48)
[2019-06-30] MEDS: Lidocaine 5% Patch 1 PATCH TOPICAL (08:48)
[2019-06-30] MEDS: Cefdinir 300 MG Capsule PO (08:48)
[2019-06-30] MEDS: Gabapentin 300 MG Capsule PO (08:48)
[2019-06-30 10:45] VITALS: BP 111/78; PULSE 69; RESP 16; TEMP 36.6; O2SAT 97
--- NOTE | 2019-06-30 10:50 | NURSING ---
Discharged home with family via family friend transport. Discharged instructions, medications and appointment discussed with pt and family. denies questions or concerns
== END 2019-06-30 10:45 | disposition home or self-care (01) | DRG 560 ==
PROVIDERS: Nurse Practitioner Family; Admitting Provider Psychiatry & Neurology Neurology; Referring Provider Psychiatry & Neurology Neurology; Visit Provider Internal Medicine
DX: S32.011D Stable burst fracture of first lumbar vertebra, subsequent encounter for fracture with routine healing (principal); N39.0 Urinary tract infection, site not specified; V80 Animal-rider or occupant of animal-drawn vehicle injured in transport accident; S22.41XD Multiple fractures of ribs, right side, subsequent encounter for fracture with routine healing; S27.321D Contusion of lung, unilateral, subsequent encounter; S00.83XD Contusion of other part of head, subsequent encounter; S34.101S Unspecified injury to L1 level of lumbar spinal cord, sequela; S32.011S Stable burst fracture of first lumbar vertebra, sequela; F17.210 Nicotine dependence, cigarettes, uncomplicated; N31.9 Neuromuscular dysfunction of bladder, unspecified; M21.372 Foot drop, left foot; M21.371 Foot drop, right foot; S22.089D Unspecified fracture of T11-T12 vertebra, subsequent encounter for fracture with routine healing; B96.89 Other specified bacterial agents as the cause of diseases classified elsewhere
CPT/HCPCS: 36415; 80048; 81001; 85025; 85027; 87077; 87086; 87088; 87186; 92507; 92523; 92610; 97110; 97112; 97116; 97162; 97166; 97530; 97535; 97542; 97802; 97803

== ENCOUNTER → 2019-07-09 | Outpatient (CLI) | payer SELFPAY ==
[2019-07-09 11:36] LABS: Anion Gap 6 (5-15); BUN 13 mg/dL (7-18); BUN/Creat Ratio 18.9 RATIO (10-20); Chloride 106 mmol/L (98-107); Creatinine, Serum 0.69 mg/dL (0.70-1.30); EST Glomerular Filtration Rate 149 mL/min (>60); Est Glom Filt Rate - Afr Amer 180 mL/min (>60); Glucose 80 mg/dL (74-106); Sodium Level 142 mmol/L (136-145)
== END | disposition home or self-care (01) ==
PROVIDERS: Referring Provider Urology; Visit Provider Urology
DX: N13.9 Obstructive and reflux uropathy, unspecified (principal)
CPT/HCPCS: 36415; 80048

== ENCOUNTER 2019-11-07 08:00 | Outpatient (RCR) | payer SELFPAY, OTHER ==
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
--- NOTE | 2020-01-25 09:22 | HP.PTDCNRP_ITS ---
HP - Discharge Summary (1) - Patient Information NELIDA GLORIA was seen in my office for initial evaluation on 07/06/19. The following Plan of Care was established for this patient: Initial Frequency: 2x /Week Initial Duration: 8WEEKS - Anticipated Interventions Patient/Client Instruction: Educate patient on: Condition, Plan of Care For the Purpose of:: To decrease pain, To increase oxygenation perfusion, To imp rove ability to perform ADL's, To increase tolerance to activity/condition/position, To improve performance and independence with ADL's, To improve ability of physical actions for home/community/work/leisure, To increase flexibility/ROM, To improve endurance, To improve balance, To reduce risk of recurrence, To improve ability to perform tasks related to life management Therapeutic Exercise to Include: Strength training, Endurance training, Balance training, Postural training, Gait and locomotor training, Dynamic Lumbar Stabilization For the Purpose of:: To decrease pain, To improve muscle performance and motor function, To improve ability to perform ADL's, To increase tolerance to activity/condition/position, To improve performance and independence with ADL's, To decrease level of supervision to perform tasks, To improve ability of physical actions for home/community/work/leisure, To improve gait and locomotor functions, To increase flexibility/ROM, To improve endurance, To assume or resume ADL's, To improve ability to perform tasks related to life management, To improve tolerance to ADL's Functional Training to Include: Gait training For the Purpose of:: To improve muscle performance and motor function, To improve ability to perform ADL's, To increase tolerance to activity/cond ition/position, To improve ability of physical actions for home/community/work/leisure, To improve ability to perform tasks related to life management This patient was last seen in our office . Pertinent comments regarding their Physical therapy will appear below: Patient seen for PT for gait/balance program,strengthening ,functional training. Patient has increasede strength BLE and working which requires standing and sitting thus is d/c. At this point I will be discontinuing this patient from physical therapy. I would be happy to see this patient again in the future if found appropriate by the physician. Thank you! Jayy Pereira, PT, Cert MDT, OCS
== END 2019-11-07 19:00 | disposition home or self-care (01) ==
LOC: PT 08:00
PROVIDERS: Referring Provider Psychiatry & Neurology Neurology; Visit Provider Psychiatry & Neurology Neurology
DX: M96.1 Postlaminectomy syndrome, not elsewhere classified (principal)
CPT/HCPCS: 97110; 97116; 97140; 97162; 97530